=== PATIENT | male | born 1970 | race African-American/Black ===

== ENCOUNTER 2018-07-21 03:53 | Emergency (ER) | payer SELFPAY ==
[~2018-07-21] VITALS: Ht 180.3 cm; Wt 104.3 kg
[2018-07-21 04:13] VITALS: BP 133/73
[2018-07-21] MEDS ORDERED: ACETAMINOPHEN 325 MG TABLET PO ONE (05:30)
[2018-07-21] MEDS ORDERED: ACETAMINOPHEN 325 MG TABLET ONE (05:35)
== END 2018-07-21 06:07 | disposition home or self-care (01) ==
LOC: ER 03:53
DX: S49.81XA Other specified injuries of right shoulder and upper arm, initial encounter (principal); I10 Essential (primary) hypertension; I25.2 Old myocardial infarction; J45.909 Unspecified asthma, uncomplicated; E11.9 Type 2 diabetes mellitus without complications; F41.9 Anxiety disorder, unspecified; F32.9 Major depressive disorder, single episode, unspecified; Z86.73 Personal history of transient ischemic attack (TIA), and cerebral infarction without residual deficits; Z98.890 Other specified postprocedural states; Z60.2 Problems related to living alone; W05.0XXA Fall from non-moving wheelchair, initial encounter; Y93.89 Activity, other specified; Y92.89 Other specified places as the place of occurrence of the external cause; Y99.8 Other external cause status
CPT/HCPCS: 73030-TC

== ENCOUNTER 2018-09-14 13:08 | Inpatient (IN) | payer OTHER ==
[~2018-09-14] VITALS: Ht 177.8 cm; Wt 93.4 kg
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
[2018-09-14] MEDS ORDERED: FLUT1BLS INH (16:20)
[2018-09-14] MEDS ORDERED: CLOP75TA15 PO (16:20)
[2018-09-14] MEDS ORDERED: METO25TA20 PO (16:20)
[2018-09-14] MEDS ORDERED: NAPR-1009 PO (16:20)
[2018-09-14] MEDS ORDERED: IBUP-1490 PO (16:20)
[2018-09-14] MEDS ORDERED: ALBU18HF2 PO (16:20)
[2018-09-14] MEDS ORDERED: ASPI-1152 PO (16:20)
[2018-09-14] MEDS ORDERED: METF-440 PO (16:20)
[2018-09-14] MEDS ORDERED: ROSU20TA31 PO (16:20)
[2018-09-14] MEDS ORDERED: CIME300T PO (16:24)
--- NOTE | 2018-09-14 17:25 | NUR ---
TELE/RN SPOKE WITH DR RODRIGUEZ AND NOTIFIED PATIENT DIRECT ADMITTED FROM [facility], NEEDS ADMISSION ORDER AND REQUEST DIET ORDER SECONDARY TO PATIENT DX OF DM. PER DR RODRIGUEZ, ADMIT TO TELE, DIABETIC, CARDIAC DIET, RISS MODERATE AC AND HS ACCUCHECK ORDER. ORDERS NOTED AND CARRIED OUT. PATIENT NOTIFIED.
[2018-09-14] MEDS ORDERED: INSULIN REGULAR, HUMAN 100 UNIT/ML 3 ML VIAL SQ PRN (17:30)
[2018-09-14] MEDS ORDERED: DEXTROSE 50%-WATER 50 ML DISP.SYRIN IV PRN (17:30)
[2018-09-14] MEDS ORDERED: *INSULIN REGULAR(HUMULIN R)HUM 100 UNIT/ML VIAL SQ PRN (17:30)
[2018-09-14] MEDS: BLOOD SUGAR DIAGNOSTIC 1 EACH STRIP IN SCH ×2 (18:07→21:46)
[2018-09-14] MEDS ORDERED: ONDANSETRON HCL/PF 4 MG/2 ML VIAL IVP PRN (18:30)
[2018-09-14] MEDS ORDERED: Z GUARD REMEDY 2 OZ OINT TP PRN (18:30)
[2018-09-14] MEDS ORDERED: MAGNESIUM HYDROXIDE 30 ML UDC PO PRN (18:30)
[2018-09-14] MEDS ORDERED: ZOLPIDEM TARTRATE 5 MG TABLET PO PRN (18:30)
[2018-09-14] MEDS ORDERED: ACETAMINOPHEN 325 MG TABLET PO PRN (18:30)
[2018-09-14] MEDS ORDERED: MORPHINE SULFATE INJ 2 MG/ML DISP.SYRIN IV PRN (18:30)
[2018-09-14] MEDS ORDERED: HYDROCODONE/APAP 5/325MG 1 EACH TABLET PO PRN (18:30)
[2018-09-14] MEDS ORDERED: MAG HYDROX/AL HYDROX/SIMETH 30 ML UDC PO PRN (18:30)
--- NOTE | 2018-09-14 18:40 | NUR ---
AUTOMATIC BLOCKER CLOSING NOTES PATIENT A/O X4 WITH EPISODES OF FORGETFULNESS, PRESENCE OF LEFT HARD OF HEARING, ABLE TO MAKE NEEDS KNOWN, RESPONSIVE TO ALL STIMULI. RESPIRATION EVEN AND NON LABORED WITH NO ACUTE RESPIRATORY DISTRESS, NOT IN NEED OF OXYGEN. ABDOMEN SOFT AND NON DISTENDED WITH ACTIVE BOWEL SOUNDS TO ALL QUADRANTS. SKIN WARM TO TOUCH, INTACT AND DRY. PATIENT DENIES PAIN AND DISCOMFORT AT THIS TIME. IV SITE AT RIGHT FOREARM GAUGE 20 WITH NO S/SX OF INFILTRATION, PATENT IN FLUSHING. TELE MONITOR WITH SINUS AND T ELEVATION 66. ALL CONCERNS ADDRESSED. PLACED CALL LIGHT WITHIN REACH FOR SAFETY. WILL CONTINUE TO MONITOR CHEST PAIN COMPLAIN. ENDORSED PATIENT CASE TO NEXT SHIFT.
[2018-09-14 20:00] VITALS: BP 138/86
[2018-09-15] VITALS: BP 146/84
[2018-09-15 04:00] VITALS: BP 130/81
[2018-09-15] MEDS: BLOOD SUGAR DIAGNOSTIC 1 EACH STRIP IN SCH ×4 (06:31→21:09)
--- NOTE | 2018-09-15 06:49 | NUR ---
PT SEEN BY MD REVELES, TELE MONITOR D/C AND PT TRANSFERRED TO [facility]
[2018-09-15 07:18] LABS: BASOPHILS % (AUTO) 0.7 % (0.0-2.0); EOSINOPHILS % (AUTO) 5.4 % (0.0-6.0); HEMATOCRIT 41 % (39-51); HEMOGLOBIN 13.9 g/dL (13.5-17.5); MEAN CORPUSCULAR HGB CONC 34 g/dl (31.0-36.0); MEAN CORPUSCULAR VOLUME 91 fL (80-96); MONOCYTES # (AUTO) 0.3 /CMM (0.1-1.30); MONOCYTES % (AUTO) 8.6 % (2.0-12.0); NEUTROPHILS # (AUTO) 1.6 /CMM (1.8-8.9); NEUTROPHILS % (AUTO) 53.3 % (43.0-81.0); PLATELET COUNT (AUTO) 195 /CMM (150-450); RED BLOOD CELL COUNT(AUTO) 4.49 MIL/uL (4.5-6.0)
--- NOTE | 2018-09-15 07:25 | NUR ---
RN OPENING NOTE PT WAS RECEIVED IN BED AT LOWEST AND LOCKED POSITION WITH SIDE RAILS UP X2, A/O X4 WITH LEFT SIDED HEARING PROBLEM AND LEFT SIDED WEAKNESS, BREATHING EVEN AND UNLABORED ON RA, NO CURRENT COMPLAINTS OF ANY PAIN OR DISTRESS, IV IS PATENT AND INTACT, SAFETY PRECAUTIONS IN PLACE, CALL LIGHT WITHIN REACH, WILL MONITOR ACCORDINGLY.
[2018-09-15] MEDS ORDERED: ALBUTEROL FS 2.5 MG/3 ML VIAL.NEB NEB PRN (07:35)
[2018-09-15 07:54] LABS: THYROID STIMULATING HORMONE 1.403 uIU/mL (0.358-3.74)
[2018-09-15 07:56] LABS: CALCIUM, SERUM 8.5 mg/dL (8.5-10.1); MAGNESIUM 2.3 mg/dL (1.8-2.4); PHOSPHORUS 4.6 mg/dL (2.5-4.9); POTASSIUM 3.9 mmol/L (3.5-5.1)
[2018-09-15 08:00] VITALS: BP 148/89
--- NOTE | 2018-09-15 08:09 | NUR ---
Per Clinical Molecular Geneticist ELIZABETH Tapia, Heart Scan will be done on 09/16/18 due to lack of RN.
[2018-09-15 08:54] VITALS: BP 148/89
[2018-09-15] MEDS: ASPIRIN EC 81 MG TABLET.DR PO SCH (08:59)
[2018-09-15] MEDS: METFORMIN 500 MG TABLET PO SCH ×2 (08:59→16:39)
[2018-09-15] MEDS: FAMOTIDINE (20 MG) 20 MG TABLET PO SCH ×2 (08:59→21:09)
[2018-09-15] MEDS: METOPROLOL TARTRATE 25 MG TABLET PO SCH ×2 (09:00→16:39)
[2018-09-15] MEDS ORDERED: CIMETIDINE 300 MG PO SCH (09:00)
[2018-09-15] MEDS: FLUTICASONE/VILANTEROL 1 EACH BLST.W.DEV IH SCH (09:31)
--- NOTE | 2018-09-15 10:40 | NUR ---
RN NOTE RECEIVED CALL FROM RADIOLOGY REGARDING [facility] FOR PATIENT TODAY. CONSENT FOR PROCEDURE WAS SIGNED AND NEW IV GAUGE 18 INSERTED IN THE LEFT AC AT THIS TIME.
[2018-09-15] MEDS ORDERED: METOPROLOL TARTRATE INJ 5 MG/5 ML AMPUL ONE ×3 (11:14→11:36)
[2018-09-15] MEDS ORDERED: IOHEXOL-350 100 ML VIAL IV ONE ×2 (11:14→12:00)
[2018-09-15] MEDS ORDERED: IV NS 0.9% 500 ML IV ONE (12:00)
[2018-09-15] MEDS ORDERED: NITROGLYCERIN 4.9 GM SPRAY SL ONE (12:00)
[2018-09-15] MEDS ORDERED: METOPROLOL TARTRATE INJ 5 MG/5 ML AMPUL IVP ONE (12:00)
[2018-09-15] MEDS ORDERED: IV NS 0.9% 250 ML IV ONE (12:03)
--- NOTE | 2018-09-15 12:20 | NUR ---
RN NOTE PT BROUGHT BACK FROM [facility] AT THIS TIME, NOTED THAT PT MUST NOT RECEIVE METFORMIN FOR THE NEXT 48 HRS, WILL IMPLEMENT MISC ORDER NOTING THIS. WILL MONITOR PATIENT ACCORDINGLY
[2018-09-15 16:00] VITALS: BP 138/92
[2018-09-15] MEDS: CLOPIDOGREL BISULFATE 75 MG TABLET PO SCH (16:39)
--- NOTE | 2018-09-15 18:34 | NUR ---
RN CLOSING NOTE PT RELAXED IN BED AT LOWEST AND LOCKED POSITION WITH SIDE RAILS UP, A/O X4 WITH BREATHING EVEN AND UNLABORED ON RA, NO COMPLAINTS OF ANY PAIN OR DISTRESS AT THIS TIME, IV IS PATENT AND INTACT, SAFETY PRECAUTIONS IN PLACE, CALL LIGHT WITHIN REACH, WILL ENDORSE TO ONCOMING MANAGEMENT RETAIL INTERN RN FOR CAM.
--- NOTE | 2018-09-15 19:30 | NUR ---
RN NOTES RECEIVED PT AWAKE ON BED, A/OX4, LEFT WEAKNESS,WHEELCHAIR DEPENDENCE, LEFT EAR HARD OF HEARING, DENIES PAIN, NO SOB, CALL LIGHT WITHIN REACH, SIDERAILSUPX2, CONTINUE TO MONITOR
[2018-09-15 20:11] VITALS: BP 138/85
[2018-09-15] MEDS ORDERED: ATORVASTATIN 40 MG TABLET PO SCH (22:00)
[2018-09-16] MEDS: BLOOD SUGAR DIAGNOSTIC 1 EACH STRIP IN SCH ×3 (05:33→16:24)
--- NOTE | 2018-09-16 05:34 | NUR ---
blood sugar 97: bs 97, no insulin coverage per sliding scale, pt requested for snack, provided with cranberry juice and 2 packets of tarah crackers.
--- NOTE | 2018-09-16 06:50 | NUR ---
RN NOTES AWAKE, DENEIS PAIN, NO SOB, MORNING CARE RENDERED, CALL LIGHT WITHIN REACH, SIDERAILSUPX2, PT. NEEDS ATTENDED
--- NOTE | 2018-09-16 07:00 | NUR ---
RN NOTES COMPLAINED OF LEFT HAND PAIN- 11/04- NORCO 5/325 MG PO GIVEN ORDERED, V/S STABLE
[2018-09-16 07:32] LABS: BASOPHILS % (AUTO) 0.3 % (0.0-2.0); EOSINOPHILS % (AUTO) 4.5 % (0.0-6.0); HEMATOCRIT 40 % (39-51); HEMOGLOBIN 13.7 g/dL (13.5-17.5); LYMPHOCYTES # (AUTO) 0.7 /CMM (0.8-4.8); MEAN CORPUSCULAR HGB CONC 34 g/dl (31.0-36.0); MEAN CORPUSCULAR VOLUME 90 fL (80-96); MONOCYTES # (AUTO) 0.3 /CMM (0.1-1.30); MONOCYTES % (AUTO) 8.4 % (2.0-12.0); NEUTROPHILS # (AUTO) 2.3 /CMM (1.8-8.9); NEUTROPHILS % (AUTO) 65.8 % (43.0-81.0); PLATELET COUNT (AUTO) 185 /CMM (150-450); RED BLOOD CELL COUNT(AUTO) 4.43 MIL/uL (4.5-6.0); WHITE BLOOD COUNT (AUTO) 3.5 K/uL (4.3-11.0)
[2018-09-16 07:46] LABS: CALCIUM, SERUM 8.5 mg/dL (8.5-10.1); CREATININE 1.2 mg/dL (0.6-1.3); MAGNESIUM 2.1 mg/dL (1.8-2.4); PHOSPHORUS 4.4 mg/dL (2.5-4.9); POTASSIUM 3.7 mmol/L (3.5-5.1)
[2018-09-16 08:00] VITALS: BP 130/94
--- NOTE | 2018-09-16 08:00 | NUR ---
RN NOTES RECEIVED PATIENT IN THE BED A/O X4 MALE. PATIENT STABLE, NO ACUTE RESPIRATORY DISTRESS. MEDICATION WERE ADMINISTERED FOR PAIN EFFECTIVE. PATIENT TAKE SCHEDULED MEDICATION, V/S STABLE. PATIENT USING WHEELCHAIR, BUT STABLE TO SELF CARE. SAFETY PRECAUTION MAINTAINED ALL THE TIME. PATIENT USING URINAL. CALL LIGHT WITHIN TO REACH. EDWIN UED MONITORING.
--- NOTE | 2018-09-16 10:30 | NUR ---
RN NOTES PATIENT WILL D/C HOME SELF CARE PER Dr. RODRIGUEZ'S ORDER.
[2018-09-16] MEDS: FLUTICASONE/VILANTEROL 1 EACH BLST.W.DEV IH SCH (10:49)
[2018-09-16] MEDS: ASPIRIN EC 81 MG TABLET.DR PO SCH (10:50)
[2018-09-16] MEDS: METFORMIN 500 MG TABLET PO SCH ×2 (10:50→16:23)
[2018-09-16] MEDS: FAMOTIDINE (20 MG) 20 MG TABLET PO SCH (10:50)
[2018-09-16] MEDS: METOPROLOL TARTRATE 25 MG TABLET PO SCH ×2 (10:50→16:24)
--- NOTE | 2018-09-16 12:00 | NUR ---
RN NOTES PATIENT STABLE, REFUSED BLOOD GLUCOSE TO BE TAKEN. CONTINUED MONITORING.
[2018-09-16] MEDS: CLOPIDOGREL BISULFATE 75 MG TABLET PO SCH (16:23)
[2018-09-16 16:24] VITALS: BP 136/70
--- NOTE | 2018-09-16 16:35 | NUR ---
HELPDESK TECHNICIAN NOTES PATIENT DISCHARGE AT THIS TIME GOING HOME SELF CARE. PATIENT A/O X4, STABLE, BS-132 MG/DL REFUSED COVERAGE TO BE GIVEN. ADMINISTERED SCHEDULED MEDICATION. PATIENT REFUSED PAIN , V/S STABLE. MED RECONCILIATION AND DISCHARGE ORDER REVIEWED AND EXPLAINED TO PATIENT. PATIENT VERBALIZED UNDERSTANDING. IV ACCESS REMOVED.PATIENT BELONGING WITH THE PATIENT. PATIENT SITTING IN THE WHEELCHAIR. PATIENT SIGN PAPERWORK. PATIENT WILL FOLLOW PRIMARY MD, AND TAKE HOME MEDICATION. ESCORTED PATIENT TO THE LOBBY FOR SAFETY. PATIENT WILL TAKE A BUS .
--- NOTE | 2018-09-18 14:13 | NUR ---
POST DC FOLLOW UP CALL NOTES CALLED [facility]OUSSARD AND THE PHONE NUMBER DIALED IS OUT OF SERVICE.CALLED PT'S SISTER, BAO GALAVIZ 3X BUT IS ALWAYS UNAVAILABLE.NO VOICE MAIL TO LEAVE MESSAGE.
== END 2018-09-16 16:30 | disposition home or self-care (01) | DRG 198 ==
LOC: TELE 15:47 → MED 09-15 08:16
PROVIDERS: ADMIT Student in an Organized Health Care Education/Training Program; ATTEND Student in an Organized Health Care Education/Training Program
DX: I25.10 Atherosclerotic heart disease of native coronary artery without angina pectoris (principal); I69.354 Hemiplegia and hemiparesis following cerebral infarction affecting left non-dominant side; E78.5 Hyperlipidemia, unspecified; E11.9 Type 2 diabetes mellitus without complications; I10 Essential (primary) hypertension; Z95.5 Presence of coronary angioplasty implant and graft; F14.10 Cocaine abuse, uncomplicated; J45.909 Unspecified asthma, uncomplicated; Z99.3 Dependence on wheelchair; Z87.891 Personal history of nicotine dependence; R07.89 Other chest pain
CPT/HCPCS: 36415; 75574; 80048-TC; 80061-TC; 82962-TC; 83735-TC; 84100-TC; 84443-TC; 84484-TC; 85025-TC; 87081-TC; 93307-TC; G0378; J1815; J3490; J7050; Q9967

== ENCOUNTER 2020-09-16 01:07 | Emergency (ER) | payer OTHER ==
[~2020-09-16] VITALS: Ht 185.4 cm; Wt 99.8 kg
[~2020-09-16 01:07] MED LIST: ALBU18HF2 PO; ASPI-1420 PO; CIME300T PO; CLOP75TA15 PO; FLUT1BLS INH; IBUP-1490 PO; METF-440 PO; METO25TA20 PO; NAPR-1009 PO; ROSU20TA32 PO
--- NOTE | 2020-09-16 01:11 | NUR ---
PT AAOX4. 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 PER RA PT RECEIVED 2 SPRAYS OF NITRO 324 ASA PER RA. PT PLACED ON GROUNDS CLEANER AND PULSE OX. LINE ESTABLISHED RW 20G, BLOOD WORK COLLECTED, SENT TO LAB. AWAITING OTHER ORDERS.
[2020-09-16] MEDS ORDERED: NITROGLYCERIN PACKET 1 GM PACKET ONE (01:36)
[2020-09-16 01:48] LABS: BASOPHILS # (AUTO) 0.1 /CMM (0.0-0.2); BASOPHILS % (AUTO) 1.2 % (0.0-2.0); EOSINOPHILS % (AUTO) 2.4 % (0.0-6.0); HEMATOCRIT 39 % (39-51); HEMOGLOBIN 13.2 g/dL (13.5-17.5); LYMPHOCYTES # (AUTO) 0.7 /CMM (0.8-4.8); LYMPHOCYTES % (AUTO) 14.4 % (20.0-44.0); MEAN CORPUSCULAR HGB CONC 34 g/dl (31.0-36.0); MEAN CORPUSCULAR VOLUME 91 fL (80-96); MONOCYTES # (AUTO) 0.4 /CMM (0.1-1.30); MONOCYTES % (AUTO) 7.8 % (2.0-12.0); NEUTROPHILS # (AUTO) 3.4 /CMM (1.8-8.9); NEUTROPHILS % (AUTO) 74.2 % (43.0-81.0); PLATELET COUNT (AUTO) 204 /CMM (150-450); RED BLOOD CELL COUNT(AUTO) 4.23 MIL/uL (4.5-6.0); WHITE BLOOD COUNT (AUTO) 4.6 K/uL (4.3-11.0)
[2020-09-16] MEDS ORDERED: ONDANSETRON HCL/PF - ER 4 MG/2 ML VIAL IV ONE (02:00)
[2020-09-16] MEDS ORDERED: NITROGLYCERIN PACKET 1 GM PACKET TD ONE (02:00)
[2020-09-16] MEDS ORDERED: HYDROMORPHONE 1 MG/1 ML DISP.SYRIN IV ONE (02:00)
[2020-09-16 02:02] LABS: CALCIUM, SERUM 8.3 mg/dL (8.5-10.1); CARBON DIOXIDE 27 mmol/L (21-32); CHLORIDE 107 mmol/L (98-107); CREATININE 0.8 mg/dL (0.6-1.3); GLUCOSE 111 mg/dL (74-106); POTASSIUM 3.5 mmol/L (3.5-5.1); SODIUM SERUM 143 mmol/L (136-145); UREA NITROGEN, BLOOD 15 mg/dL (7-18)
[2020-09-16] MEDS ORDERED: ONDANSETRON HCL/PF 4 MG/2 ML VIAL ONE (02:06)
[2020-09-16] MEDS ORDERED: HYDROMORPHONE 1 MG/1 ML DISP.SYRIN ONE (02:08)
--- NOTE | 2020-09-16 02:11 | NUR ---
PT STATED CP 6 AT THIS TIME, PT MEDICATED.
[2020-09-16 02:17] LABS: ALANINE AMINOTRANSFERASE 26 U/L (12-78); ALBUMIN 3.2 g/dL (3.4-5.0); ALKALINE PHOSPHATASE 70 U/L (46-116); ASPARTATE AMINOTRANSFERASE 19 U/L (15-37); B-TYPE NATRIURETIC PEPTIDE 14 PG/ML (0-125); BILIRUBIN,DIRECT 0.1 mg/dL (0.0-0.2); BILIRUBIN,TOTAL 0.4 mg/dL (0.2-1.0); TOTAL PROTEIN, SERUM 7.6 g/dL (6.4-8.2)
--- NOTE | 2020-09-16 03:33 | NUR ---
PT ASLEEP, VSS.
[2020-09-16] MEDS ORDERED: ASPI-1420 PO (05:13)
--- NOTE | 2020-09-16 05:39 | NUR ---
Patient discharged to home in stable condition. Written and verbal after care instructions given. Patient verbalizes understanding of instruction and RX. Pt ambulated out of ED.
--- NOTE | 2020-09-16 05:39 | NUR ---
IV removed. Catheter intact and site benign. Pressure and 4x4 applied to site. No bleeding noted.
[2020-09-16 05:41] VITALS: BP 129/73
== END 2020-09-16 05:51 | disposition home or self-care (01) ==
LOC: ER 01:09
DX: R07.9 Chest pain, unspecified (principal); Z20.822 Contact with and (suspected) exposure to COVID-19; I25.2 Old myocardial infarction; I10 Essential (primary) hypertension; K21.9 Gastro-esophageal reflux disease without esophagitis; J45.909 Unspecified asthma, uncomplicated; E78.00 Pure hypercholesterolemia, unspecified; Z59.0 Homelessness; Z79.02 Long term (current) use of antithrombotics/antiplatelets; E11.9 Type 2 diabetes mellitus without complications; Z79.84 Long term (current) use of oral hypoglycemic drugs; Z99.3 Dependence on wheelchair; Z86.73 Personal history of transient ischemic attack (TIA), and cerebral infarction without residual deficits
CPT/HCPCS: 36415; 71045; 80048; 80076; 83880; 84484 ×2; 85025; 87426; 93005; 96374; 96375; 99285; C9803; J1170; J2405